=== PATIENT | male | born 1995 | race Caucasian/White ===

== ENCOUNTER 2022-06-22 19:33 | Emergency (ER) | payer MEDICAID ==
[~2022-06-22] VITALS: Ht 167.6 cm; Wt 142.4 kg
[~2022-06-22 19:33] MED LIST: ACET-812 PO; CARV3.1289 PO; LISI2.5T14 PO
[2022-06-22 19:45] VITALS: BP 164/83
== END 2022-06-22 21:37 | disposition home or self-care (01) ==
LOC: ER 19:33
DX: I87.8 Other specified disorders of veins (principal); J45.909 Unspecified asthma, uncomplicated; Z98.890 Other specified postprocedural states; Z59.00 Homelessness unspecified; Z79.899 Other long term (current) drug therapy
CPT/HCPCS: 99283

== ENCOUNTER 2024-09-04 01:05 | Inpatient (IN) | payer MEDICAID ==
[~2024-09-04] VITALS: Ht 167.6 cm; Wt 180.0 kg
[~2024-09-04 01:05] MED LIST changes: +ACET-1266 PO; -ACET-812 PO; -CARV3.1289 PO; +IBUP-1984 PO; -LISI2.5T14 PO
[2024-09-04] MEDS ORDERED: VANCOMYCIN 1GM 200ML H20 (PEG) 200 ML IV ONE (01:40)
[2024-09-04] MEDS ORDERED: acetaminophen 325mg tablet PO ONE (01:40)
[2024-09-04] MEDS ORDERED: cephalexin 250mg capsule PO ONE (01:40)
[2024-09-04 02:11] LABS: BASOPHILS # (AUTO) 0.1 X10'3 (0-0.2); BASOPHILS % (AUTO) 1.2 % (0-1); EOSINOPHILS # (AUTO) 0.3 X10'3 (0-0.9); EOSINOPHILS % (AUTO) 3.8 % (0-6); HEMATOCRIT 37.8 % (42.0-52.0); HEMOGLOBIN 12.5 g/dl (14.0-17.9); LYMPHOCYTES # (AUTO) 1.5 X10'3 (1.1-4.8); MEAN CORPUSCULAR HEMOGLOBIN 26.8 PG (27.0-31.0); MEAN CORPUSCULAR HGB CONC 32.9 g/dL (33.0-36.5); MEAN CORPUSCULAR VOLUME 81.3 FL (78-98); MEAN PLATELET VOLUME 8.2 FL (7.4-10.4); MONOCYTES # (AUTO) 0.5 X10'3 (0-0.9); MONOCYTES % (AUTO) 6.6 % (2-12); NEUTROPHILS # (AUTO) 5.8 X10'3 (1.8-7.7); NEUTROPHILS % (AUTO) 70.4 % (42-75); PLATELET COUNT 368 X10'3 (140-440); RED BLOOD COUNT 4.65 X10'6 (4.70-6.10); RED CELL DISTRIBUTION WIDTH 15.5 % (11.5-14.5); WHITE BLOOD COUNT 8.2 X10'3 (4.5-11.0)
[2024-09-04 02:28] LABS: ALANINE AMINOTRANSFERASE 55 U/L (12-78); ALBUMIN 3.3 G/DL (3.4-5.0); ALBUMIN/GLOBULIN RATIO 0.7 (1.1-1.5); ALKALINE PHOSPHATASE 101 IU/L (46-116); ANION GAP 5 (8-16); ASPARTATE AMINO TRANSFERASE 34 U/L (10-37); BILIRUBIN,TOTAL 0.4 MG/DL (0.1-1.0); BLOOD UREA NITROGEN 17 MG/DL (7-18); BUN/CREATININE RATIO 25.8 (10.0-20.0); CALCIUM 8.7 MG/DL (8.5-10.1); CHLORIDE 107 MMOL/L (99-107); CREATININE 0.66 MG/DL (0.60-1.10); GLUCOSE 104 MG/DL (70-104); POTASSIUM 3.8 MMOL/L (3.5-5.1); SODIUM 141 MMOL/L (135-145); TOTAL CARBON DIOXIDE 28.6 MMOL/L (24-32); TOTAL PROTEIN 7.9 G/DL (6.4-8.2); eCRCL 148 ML/MIN; eGFR > 90 ML/MIN
[2024-09-04 02:31] LABS: C-REACTIVE PROTEIN 1.65 MG/DL (0.0-0.5); MAGNESIUM 2.2 MG/DL (1.5-2.4)
[2024-09-04] MEDS: normal saline 1000ML IV soln IVB ONE (02:45)
[2024-09-04] MEDS: piperacillin/tazo 3.375gm/50ml 50 ML IV ONE (02:45)
[2024-09-04] MEDS: vancomycin/NS 1 GM ADD-VANTAGE 250 ML IV ONE (03:01)
[2024-09-04] MEDS: HYDROcodone/acetaminophen 5mg/325mg tablet PO ONE (04:04)
[2024-09-04] MEDS ORDERED: ondansetron/PF 4mg/2ml inj IV PRN (05:20)
[2024-09-04] MEDS ORDERED: potassium Cl 20 mEq SR tablet PO PRN ×2 (05:20)
[2024-09-04] MEDS ORDERED: magnesium Cl slow-release 64mg tablet PO PRN (05:20)
[2024-09-04] MEDS ORDERED: magnesium sulf-water 4G/100mL 100 ML IV PRN (05:20)
[2024-09-04] MEDS ORDERED: mag hydrox/Alum hydrox/simeth 30ml oral suspension PO PRN (05:20)
[2024-09-04] MEDS ORDERED: magnesium sulf-water 2g/50mL 50 ML IV PRN (05:20)
[2024-09-04] MEDS ORDERED: potassium Cl 40MEQ/1/2NS 520ml 520 ML IV PRN (05:20)
[2024-09-04] MEDS ORDERED: acetaminophen 325mg tablet PO PRN (05:20)
[2024-09-04] MEDS: normal saline 1000ml 1,000 ML IV SCH (05:34)
[2024-09-04] MEDS: furosemide 20 MG/2 ML vial IV ONE (07:06)
[2024-09-04] MEDS ORDERED: clindamycin 300mg/D5W 50mL 50 ML IV SCH (08:00)
[2024-09-04] MEDS: K and/or MAG REPLACEMENT MC SCH (08:00)
[2024-09-04 08:15] VITALS: RESP 16; O2SAT 96
[2024-09-04 08:48] LABS: BILIRUBIN,URINE NEGATIVE (Neg); CLARITY,URINE CLEAR (Clear); COLOR,URINE STRAW (Yellow); GLUCOSE, URINE NEGATIVE (Neg); KETONES,URINE NEGATIVE (Neg); LEUKOCYTE ESTERASE ,URINE NEGATIVE (Neg); NITRITES, URINE NEGATIVE (Neg); OCCULT BLOOD,URINE NEGATIVE (Neg); PH,URINE 5.5 (4.8-8.0); PROTEIN,URINE NEGATIVE (Neg); UROBILINOGEN,URINE 0.2 E.U/dL (0.2-1.0)
[2024-09-04 08:53] LABS: UA COLLECTION TYPE VOIDED
[2024-09-04 09:00] VITALS: BP 153/70; PULSE 101; RESP 16; TEMP 98; O2SAT 96
[2024-09-04 09:09] LABS: URINE AMPHETAMINE SCREEN NEGATIVE (Neg); URINE BARBITUATE SCREEN NEGATIVE (Neg); URINE BENZODIAZEPINES SCREEN NEGATIVE (Neg); URINE CANNABINOID SCREEN NEGATIVE (Neg); URINE COCAINE SCREEN NEGATIVE (Neg); URINE METHADONE SCREEN NEGATIVE (Neg); URINE OPIATE SCREEN NEGATIVE (Neg); URINE PHENCYCLIDINE SCREEN NEGATIVE (Neg)
[2024-09-04] MEDS: HYDROcodone/acetaminophen 5mg/325mg tablet PO PRN (09:12)
[2024-09-04] MEDS: pantoprazole 40mg Tablet.DR PO SCH (09:12)
[2024-09-04] MEDS: lisinopril 5mg tablet PO SCH (09:12)
[2024-09-04] MEDS: piperacillin/tazo 3.375gm/50ml 50 ML IV SCH (09:14)
[2024-09-04 09:20] LABS: POTASSIUM 3.9 MMOL/L (3.5-5.1)
[2024-09-04] MEDS: enoxaparin 30mg/0.3ml syringe SQ SCH (11:26)
[2024-09-04] MEDS: vancomycin/NS 1 GM ADD-VANTAGE 250 ML IV SCH (13:32)
[2024-09-04] MEDS: HYDROcodone/acetaminophen 10/325mg tab PO PRN (14:26)
[2024-09-04 18:00] VITALS: BP 139/65; PULSE 106; RESP 20; TEMP 99.2; O2SAT 94
[2024-09-04 19:50] VITALS: RESP 20; O2SAT 94
[2024-09-04 22:00] VITALS: BP 122/56; PULSE 93; RESP 14; TEMP 97.8; O2SAT 100
[2024-09-05] VITALS (7 sets, daily range): BP systolic 123–156; BP diastolic 52–76; PULSE 83–91; RESP 14–20; TEMP 96.7–99.2; O2SAT 93–97
[2024-09-05] MEDS: acetaminophen 325mg tablet PO PRN (00:32)
[2024-09-05 03:06] LABS: BASOPHILS # (AUTO) 0.1 X10'3 (0-0.2); BASOPHILS % (AUTO) 1.2 % (0-1); EOSINOPHILS # (AUTO) 0.3 X10'3 (0-0.9); EOSINOPHILS % (AUTO) 3.4 % (0-6); HEMOGLOBIN 10.7 g/dl (14.0-17.9); LYMPHOCYTES # (AUTO) 2.2 X10'3 (1.1-4.8); MEAN CORPUSCULAR HEMOGLOBIN 27.1 PG (27.0-31.0); MEAN CORPUSCULAR HGB CONC 33.4 g/dL (33.0-36.5); MEAN CORPUSCULAR VOLUME 81.1 FL (78-98); MEAN PLATELET VOLUME 8.4 FL (7.4-10.4); MONOCYTES # (AUTO) 0.7 X10'3 (0-0.9); MONOCYTES % (AUTO) 8.7 % (2-12); NEUTROPHILS # (AUTO) 4.9 X10'3 (1.8-7.7); NEUTROPHILS % (AUTO) 59.7 % (42-75); PLATELET COUNT 341 X10'3 (140-440); RED BLOOD COUNT 3.95 X10'6 (4.70-6.10); RED CELL DISTRIBUTION WIDTH 15.9 % (11.5-14.5); WHITE BLOOD COUNT 8.3 X10'3 (4.5-11.0)
[2024-09-05 03:18] LABS: INR 1.1 INR; PROTHROMBIN TIME 10.9 SECONDS (9.0-12.0)
[2024-09-05] MEDS: VANCOMYCIN LEVEL IV ONE (03:21)
[2024-09-05 03:22] LABS: ALANINE AMINOTRANSFERASE 42 U/L (12-78); ALBUMIN 2.7 G/DL (3.4-5.0); ALBUMIN/GLOBULIN RATIO 0.8 (1.1-1.5); ALKALINE PHOSPHATASE 87 IU/L (46-116); ANION GAP 4 (8-16); ASPARTATE AMINO TRANSFERASE 19 U/L (10-37); BILIRUBIN,TOTAL 0.9 MG/DL (0.1-1.0); BLOOD UREA NITROGEN 11 MG/DL (7-18); BUN/CREATININE RATIO 16.9 (10.0-20.0); CALCIUM 8.2 MG/DL (8.5-10.1); CHLORIDE 105 MMOL/L (99-107); CREATININE 0.65 MG/DL (0.60-1.10); GLUCOSE 99 MG/DL (70-104); MAGNESIUM 2.1 MG/DL (1.5-2.4); PHOSPHORUS 3.6 MG/DL (2.3-4.5); SODIUM 138 MMOL/L (135-145); TOTAL CARBON DIOXIDE 29.4 MMOL/L (24-32); TOTAL PROTEIN 6.3 G/DL (6.4-8.2); VANCOMYCIN,TROUGH 9.6 ug/mL (10.0-20.0); eCRCL 150 ML/MIN; eGFR > 90 ML/MIN
[2024-09-05] MEDS: furosemide 40mg tablet PO SCH (07:51)
[2024-09-05] MEDS: VANCOMYCIN/WATER FOR INJ (PEG) 1.5GM/300 ML IVPB IV SCH (11:20)
[2024-09-06 06:00] VITALS: BP 139/73; PULSE 93; RESP 20; TEMP 97.9; O2SAT 95
[2024-09-06 06:07] LABS: BASOPHILS # (AUTO) 0.1 X10'3 (0-0.2); BASOPHILS % (AUTO) 1.3 % (0-1); EOSINOPHILS # (AUTO) 0.4 X10'3 (0-0.9); EOSINOPHILS % (AUTO) 6.2 % (0-6); HEMATOCRIT 32.2 % (42.0-52.0); HEMOGLOBIN 10.9 g/dl (14.0-17.9); LYMPHOCYTES # (AUTO) 2.1 X10'3 (1.1-4.8); LYMPHOCYTES % (AUTO) 32.6 % (21-51); MEAN CORPUSCULAR HEMOGLOBIN 27.3 PG (27.0-31.0); MEAN CORPUSCULAR HGB CONC 33.7 g/dL (33.0-36.5); MEAN CORPUSCULAR VOLUME 81.1 FL (78-98); MEAN PLATELET VOLUME 8.5 FL (7.4-10.4); MONOCYTES # (AUTO) 0.5 X10'3 (0-0.9); MONOCYTES % (AUTO) 7.8 % (2-12); NEUTROPHILS # (AUTO) 3.3 X10'3 (1.8-7.7); NEUTROPHILS % (AUTO) 52.1 % (42-75); PLATELET COUNT 326 X10'3 (140-440); RED BLOOD COUNT 3.98 X10'6 (4.70-6.10); RED CELL DISTRIBUTION WIDTH 15.5 % (11.5-14.5); WHITE BLOOD COUNT 6.4 X10'3 (4.5-11.0)
[2024-09-06 06:23] LABS: ALANINE AMINOTRANSFERASE 35 U/L (12-78); ALBUMIN 2.7 G/DL (3.4-5.0); ALBUMIN/GLOBULIN RATIO 0.7 (1.1-1.5); ALKALINE PHOSPHATASE 83 IU/L (46-116); ANION GAP 7 (8-16); ASPARTATE AMINO TRANSFERASE 17 U/L (10-37); BILIRUBIN,TOTAL 0.6 MG/DL (0.1-1.0); BLOOD UREA NITROGEN 8 MG/DL (7-18); BUN/CREATININE RATIO 13.6 (10.0-20.0); CALCIUM 8.5 MG/DL (8.5-10.1); CHLORIDE 104 MMOL/L (99-107); CREATININE 0.59 MG/DL (0.60-1.10); GLUCOSE 90 MG/DL (70-104); MAGNESIUM 2.1 MG/DL (1.5-2.4); POTASSIUM 3.8 MMOL/L (3.5-5.1); SODIUM 140 MMOL/L (135-145); TOTAL CARBON DIOXIDE 29.3 MMOL/L (24-32); TOTAL PROTEIN 6.4 G/DL (6.4-8.2); VANCOMYCIN,TROUGH 11.9 ug/mL (10.0-20.0); eCRCL 165 ML/MIN; eGFR > 90 ML/MIN
[2024-09-06 08:00] VITALS: RESP 20; O2SAT 95
[2024-09-06] MEDS: VANCOMYCIN LEVEL IV ONE (10:30)
[2024-09-06 11:00] VITALS: BP 141/73; PULSE 84; O2SAT 94
[2024-09-06] MEDS: CefTRIAXone/D5W-Rocephin 1gm 50 ML IV SCH (14:19)
[2024-09-06 18:00] VITALS: BP 135/60; PULSE 74; RESP 18; TEMP 98.6; O2SAT 95
[2024-09-06 22:00] VITALS: BP 148/56; PULSE 86; RESP 20; TEMP 98; O2SAT 95
[2024-09-07 06:00] VITALS: BP 144/60; PULSE 79; RESP 21; TEMP 98; O2SAT 93
[2024-09-07 10:00] VITALS: BP 144/60; PULSE 79; RESP 21; TEMP 98; O2SAT 93
[2024-09-07 18:00] VITALS: BP 109/55; PULSE 83; RESP 24; TEMP 98.6; O2SAT 95
[2024-09-07 20:00] VITALS: RESP 24; O2SAT 95
[2024-09-07 22:00] VITALS: BP 117/49; PULSE 80; RESP 14; TEMP 97.9; O2SAT 95
[2024-09-08 04:15] LABS: BASOPHILS % (AUTO) 0.4 % (0-1); EOSINOPHILS # (AUTO) 0.4 X10'3 (0-0.9); EOSINOPHILS % (AUTO) 5.8 % (0-6); HEMATOCRIT 36.3 % (42.0-52.0); HEMOGLOBIN 12.2 g/dl (14.0-17.9); LYMPHOCYTES # (AUTO) 2.4 X10'3 (1.1-4.8); LYMPHOCYTES % (AUTO) 35.2 % (21-51); MEAN CORPUSCULAR HEMOGLOBIN 27.1 PG (27.0-31.0); MEAN CORPUSCULAR HGB CONC 33.5 g/dL (33.0-36.5); MEAN CORPUSCULAR VOLUME 80.8 FL (78-98); MEAN PLATELET VOLUME 8.1 FL (7.4-10.4); MONOCYTES # (AUTO) 0.5 X10'3 (0-0.9); MONOCYTES % (AUTO) 7.1 % (2-12); NEUTROPHILS # (AUTO) 3.5 X10'3 (1.8-7.7); NEUTROPHILS % (AUTO) 51.5 % (42-75); PLATELET COUNT 307 X10'3 (140-440); RED BLOOD COUNT 4.49 X10'6 (4.70-6.10); RED CELL DISTRIBUTION WIDTH 15.7 % (11.5-14.5); WHITE BLOOD COUNT 6.9 X10'3 (4.5-11.0)
[2024-09-08 04:30] LABS: ALANINE AMINOTRANSFERASE 43 U/L (12-78); ALBUMIN 3.1 G/DL (3.4-5.0); ALBUMIN/GLOBULIN RATIO 0.7 (1.1-1.5); ALKALINE PHOSPHATASE 89 IU/L (46-116); ANION GAP 7 (8-16); ASPARTATE AMINO TRANSFERASE 31 U/L (10-37); BILIRUBIN,TOTAL 0.5 MG/DL (0.1-1.0); BLOOD UREA NITROGEN 13 MG/DL (7-18); BUN/CREATININE RATIO 21.7 (10.0-20.0); CALCIUM 8.7 MG/DL (8.5-10.1); CHLORIDE 104 MMOL/L (99-107); GLUCOSE 90 MG/DL (70-104); MAGNESIUM 2.1 MG/DL (1.5-2.4); PHOSPHORUS 3.8 MG/DL (2.3-4.5); POTASSIUM 3.7 MMOL/L (3.5-5.1); SODIUM 140 MMOL/L (135-145); TOTAL CARBON DIOXIDE 29.4 MMOL/L (24-32); TOTAL PROTEIN 7.7 G/DL (6.4-8.2); eCRCL 162 ML/MIN; eGFR > 90 ML/MIN
[2024-09-08 06:00] VITALS: BP 129/53; PULSE 78; RESP 18; TEMP 98.8; O2SAT 95
[2024-09-08 10:00] VITALS: BP 141/57; PULSE 79; RESP 24; TEMP 98.1; O2SAT 94
[2024-09-08 18:00] VITALS: BP 123/62; PULSE 83; RESP 15; TEMP 98.2; O2SAT 96
[2024-09-08 20:00] VITALS: RESP 15; O2SAT 96
[2024-09-08 22:00] VITALS: BP 129/58; PULSE 93; RESP 20; TEMP 98.2; O2SAT 96
[2024-09-09 04:03] LABS: BASOPHILS # (AUTO) 0.1 X10'3 (0-0.2); BASOPHILS % (AUTO) 1.4 % (0-1); EOSINOPHILS # (AUTO) 0.4 X10'3 (0-0.9); EOSINOPHILS % (AUTO) 5.8 % (0-6); HEMATOCRIT 38.6 % (42.0-52.0); HEMOGLOBIN 13.1 g/dl (14.0-17.9); LYMPHOCYTES # (AUTO) 2.4 X10'3 (1.1-4.8); MEAN CORPUSCULAR HEMOGLOBIN 27.7 PG (27.0-31.0); MEAN CORPUSCULAR VOLUME 81.4 FL (78-98); MEAN PLATELET VOLUME 8.1 FL (7.4-10.4); MONOCYTES # (AUTO) 0.5 X10'3 (0-0.9); MONOCYTES % (AUTO) 7.7 % (2-12); NEUTROPHILS # (AUTO) 3.6 X10'3 (1.8-7.7); NEUTROPHILS % (AUTO) 51.1 % (42-75); PLATELET COUNT 390 X10'3 (140-440); RED BLOOD COUNT 4.74 X10'6 (4.70-6.10); RED CELL DISTRIBUTION WIDTH 15.8 % (11.5-14.5)
[2024-09-09 04:20] LABS: ALANINE AMINOTRANSFERASE 70 U/L (12-78); ALBUMIN 3.3 G/DL (3.4-5.0); ALBUMIN/GLOBULIN RATIO 0.7 (1.1-1.5); ALKALINE PHOSPHATASE 95 IU/L (46-116); ANION GAP 6 (8-16); ASPARTATE AMINO TRANSFERASE 47 U/L (10-37); BILIRUBIN,TOTAL 0.6 MG/DL (0.1-1.0); BLOOD UREA NITROGEN 12 MG/DL (7-18); BUN/CREATININE RATIO 19.4 (10.0-20.0); CHLORIDE 104 MMOL/L (99-107); CREATININE 0.62 MG/DL (0.60-1.10); GLUCOSE 92 MG/DL (70-104); PHOSPHORUS 3.7 MG/DL (2.3-4.5); POTASSIUM 3.9 MMOL/L (3.5-5.1); SODIUM 139 MMOL/L (135-145); TOTAL CARBON DIOXIDE 29.3 MMOL/L (24-32); TOTAL PROTEIN 7.8 G/DL (6.4-8.2); eCRCL 157 ML/MIN; eGFR > 90 ML/MIN
[2024-09-09 06:00] VITALS: BP 111/51; PULSE 67; RESP 18; TEMP 98.4; O2SAT 95
[2024-09-09 10:00] VITALS: RESP 18; O2SAT 95
[2024-09-09 18:00] VITALS: BP 127/53; PULSE 85; RESP 16; TEMP 98.6; O2SAT 95
[2024-09-09 22:00] VITALS: BP 125/83; PULSE 80; RESP 18; TEMP 98.2; O2SAT 100
[2024-09-10 06:00] VITALS: BP 107/58; PULSE 88; RESP 20; TEMP 97.7; O2SAT 96
[2024-09-10 08:00] VITALS: RESP 20; O2SAT 96
[2024-09-10 12:00] VITALS: BP 128/70; PULSE 74; RESP 12; TEMP 98.3; O2SAT 98
[2024-09-10 18:00] VITALS: BP 144/70; PULSE 66; RESP 16; TEMP 98.2; O2SAT 98
[2024-09-10 22:00] VITALS: BP 136/55; PULSE 85; RESP 18; TEMP 98.4; O2SAT 96
[2024-09-11] VITALS (7 sets, daily range): BP systolic 118–128; BP diastolic 55–64; PULSE 76–96; RESP 14–18; TEMP 98.1–98.4; O2SAT 93–96
[2024-09-11 06:14] LABS: BASOPHILS # (AUTO) 0.1 X10'3 (0-0.2); BASOPHILS % (AUTO) 1.2 % (0-1); EOSINOPHILS # (AUTO) 0.4 X10'3 (0-0.9); EOSINOPHILS % (AUTO) 4.5 % (0-6); HEMATOCRIT 41.1 % (42.0-52.0); HEMOGLOBIN 13.7 g/dl (14.0-17.9); LYMPHOCYTES # (AUTO) 2.8 X10'3 (1.1-4.8); LYMPHOCYTES % (AUTO) 35.1 % (21-51); MEAN CORPUSCULAR HEMOGLOBIN 27.3 PG (27.0-31.0); MEAN CORPUSCULAR HGB CONC 33.3 g/dL (33.0-36.5); MEAN CORPUSCULAR VOLUME 81.9 FL (78-98); MEAN PLATELET VOLUME 8.3 FL (7.4-10.4); MONOCYTES # (AUTO) 0.5 X10'3 (0-0.9); MONOCYTES % (AUTO) 6.5 % (2-12); NEUTROPHILS # (AUTO) 4.2 X10'3 (1.8-7.7); NEUTROPHILS % (AUTO) 52.7 % (42-75); PLATELET COUNT 368 X10'3 (140-440); RED BLOOD COUNT 5.02 X10'6 (4.70-6.10); RED CELL DISTRIBUTION WIDTH 16.1 % (11.5-14.5)
[2024-09-11 06:20] LABS: ALANINE AMINOTRANSFERASE 86 U/L (12-78); ALBUMIN 3.2 G/DL (3.4-5.0); ALBUMIN/GLOBULIN RATIO 0.7 (1.1-1.5); ALKALINE PHOSPHATASE 92 IU/L (46-116); ANION GAP 5 (8-16); ASPARTATE AMINO TRANSFERASE 57 U/L (10-37); BILIRUBIN,TOTAL 0.4 MG/DL (0.1-1.0); BLOOD UREA NITROGEN 13 MG/DL (7-18); CALCIUM 8.8 MG/DL (8.5-10.1); CHLORIDE 103 MMOL/L (99-107); CREATININE 0.59 MG/DL (0.60-1.10); GLUCOSE 93 MG/DL (70-104); POTASSIUM 3.4 MMOL/L (3.5-5.1); SODIUM 138 MMOL/L (135-145); TOTAL PROTEIN 7.7 G/DL (6.4-8.2); eCRCL 165 ML/MIN; eGFR > 90 ML/MIN
[2024-09-11] MEDS ORDERED: magnesium sulf-water 2g/50mL 50 ML IV PRN (13:30)
[2024-09-11] MEDS ORDERED: magnesium Cl slow-release 64mg tablet PO PRN (13:30)
[2024-09-11] MEDS ORDERED: magnesium sulf-water 4G/100mL 100 ML IV PRN (13:30)
[2024-09-11] MEDS ORDERED: potassium Cl 40MEQ/1/2NS 520ml 520 ML IV PRN (13:30)
[2024-09-11] MEDS ORDERED: potassium Cl 20 mEq SR tablet PO PRN (13:30)
[2024-09-11] MEDS: potassium Cl 20 mEq SR tablet PO PRN (16:24)
[2024-09-11] MEDS: K and/or MAG REPLACEMENT MC SCH (20:00)
[2024-09-12 06:00] VITALS: BP 119/67; PULSE 61; RESP 12; TEMP 95.9; O2SAT 98
[2024-09-12 07:00] VITALS: RESP 17; O2SAT 98
[2024-09-12 10:00] VITALS: BP 136/57; PULSE 87; RESP 18; TEMP 98.3; O2SAT 96
[2024-09-12] MEDS ORDERED: LISI5TAB22 PO (18:35)
== END 2024-09-12 19:30 | disposition home or self-care (01) | DRG 383 ==
LOC: ER 01:07 → ED HOLD 05:21 → SUR 3N 07:26
PROVIDERS: ADMIT Internal Medicine; ATTEND Internal Medicine
DX: L03.115 Cellulitis of right lower limb (principal); I50.30 Unspecified diastolic (congestive) heart failure; I11.0 Hypertensive heart disease with heart failure; Z68.44 Body mass index [BMI] 60.0-69.9, adult; E78.00 Pure hypercholesterolemia, unspecified; E66.01 Morbid (severe) obesity due to excess calories; L03.116 Cellulitis of left lower limb; J45.909 Unspecified asthma, uncomplicated; G47.30 Sleep apnea, unspecified; Z59.00 Homelessness unspecified
CPT/HCPCS: 36410; 36415; 73590; 73700; 76937; 80053; 80202; 80305; 81003; 83036; 83605; 83735; 83880; 84100; 84132; 84145; 84484; 85025; 85610; 85651; 86140; 87040; 87070; 87075; 87077; 87081; 87186; 93306; 93925; 93970; 96365; 96367; 97034; 97110; 97161; 97530; 97535; 97542; 99285; A4333; A6154; A6223; A6253; A6258; A6446; A6449; C1751; G0378; J0696; J1650; J1938; J2543; J3370; J3372; J7030

== ENCOUNTER 2024-11-28 09:19 | Inpatient (IN) | payer MEDICAID ==
[~2024-11-28] VITALS: Ht 167.6 cm; Wt 165.0 kg
[~2024-11-28 09:19] MED LIST changes: -IBUP-1984 PO; +LISI5TAB22 PO
--- NOTE | 2024-11-28 09:34 | Physician Documentation ---
History of Present Illness ~ Chief Complaint: Wound Stated Complaint: FEET INFECTION Time Seen by MD: 09:26 OK to notify your PCP?: Yes Primary Medical Doctor: [facility] Source: patient, RN/MD, EMS, RN notes reviewed, EMS notes reviewed, old records Mode of Arrival: EMS Exam Limitations: no limitations HPI 28 year old male seen in bed 01 presents to the emergency department via EMS brought in from home for complaints of wounds bilaterally to his feet. Patient states he was born with drop foot and has not taken his shoes off for two months. States that he will regularly shower while wearing his shoes. Patient denies any other associated symptoms at this time. Patient denies any other alleviating or exacerbating factors. Tetanus within 5 years?: No Medication Reconciliation Allergies: Coded Allergies: No Known Allergies (Unverified , 11/28/24) Miscellaneous Medications Home Med List (No Home Medications), (Reported) Discontinued Medications Acetaminophen (Acetaminophen), 1 TAB PO Q4HPRN PRN for pain or fever, (Reported) Discontinued Reason: patient no longer taking Lisinopril (Lisinopril), 5 MG PO DAILY Discontinued Reason: patient no longer taking Past Medical History Past Medical History: High Cholesterol, Hypertension, Asthma, Sleep Apnea Past Surgical History: other Other Past Surgical History: Tetralogy of Fallot surgically corrected at 4 months old Alcohol Use: None Drug Use: none Lives with: Family Lives In: Homeless Review of Systems All Other Systems at this time: Reviewed and Negative ROS As stated above in the HPI, otherwise all systems are reviewed and negative. Physical Exam Vital Signs: RN Vital Signs have been reviewed: Yes, Temperature: 99.7, Source: Temporal, Heart Rate: 125, Respiratory Rate: 16, BP: 171/94, Pulse Oximetry: 98, Weight: 165.000 Oxygen Flow Rate: 0 Pulse Oximetry Reflects: adequate oxygenation Physical Exam General: The patient is well developed, well nourished, nontoxic appearing and is in no acute distress. Skin: [place], warm and dry with no rashes. HEENT: Head was normocephalic and atraumatic. Eyes - pupils equal, round, reactive to light and accommodation. Extraocular movements were intact. Conjunctivae were nonicteric. Ears - bilateral tympanic membranes were normal. The mouth and oropharynx were clear with moist mucous membranes. There were no pharyngeal exudates or erythema. Neck: Supple and nontender. There was no jugular venous distention, ly mphadenopathy, thyromegaly or masses. Chest: Clear to auscultation bilaterally without wheezes, rales or rhonchi. No accessory muscle use. No dullness to percussion. Heart: Rapid heart rate. 4/6 systolic ejection murmur. S1, S2. No murmurs. Palpation of the chest wall was normal. No rubs or thrills. Abdomen: Soft, nontender and nondistended. Positive bowel sounds. No guarding or rebound. No hepatosplenomegaly or palpable masses. Extremities: Bilateral cellulitis in addition to cracked feet as well as multiple ulcerations to foot and back of calf posteriorly. The patient moves all extremities. Pulses were equal and symmetric. Neurologic: Cranial nerves II-XII were intact. Sensation was intact to light touch throughout. Motor strength was 5/5 in all four extremities. Deep tendon reflexes were intact in both upper and lower extremities. Psychologic: The patient was oriented to person, place and time. The patient demonstrated appropriate judgement and insight. Progress Progress Note 1150: The case was discussed with Dr. Lang who was informed on the patients case and kindly agreed to admission. Results/Orders Reviewed/noted all lab results: Yes Results/Orders Orders - SCOTT DEVRIES MD Culture Blood (11/28/24 09:32) Monitor (11/28/24 09:32) Saline Lock (11/28/24 09:32) Electrocardiogram (11/28/24 09:32) Chest,Single View (11/28/24 09:32) Page Hospitalist (11/28/24 11:24) Fill Out Med Reconciliation (11/28/24 11:24) Completed Orders - SCOTT DEVRIES MD Cbc/Diff (11/28/24 09:32) Urinalysis, Cult If Indicated (11/28/24 09:32) Procalcitonin (11/28/24 09:32) BMP (11/28/24 09:32) Lacticsepsis (11/28/24 09:32) MG (11/28/24 09:32) Chest,Single View (11/28/24 09:32) Normal Saline 1000ml (Sodium Chloride 10 (11/28/24 09:35) Ceftriaxone 2gm/D5w 50ml Bag (Rocephin 2 (11/28/24 09:35) Liver Panel (11/28/24 09:33) Vancomycin*Pharmacy To Dose* (Vancomycin (11/28/24 10:20) Vancomycin/Ns 1 Gm Add-[place] (Vancomyc (11/28/24 10:45) Potassium Cl Sr Tablet (K-Dur Tablet) (11/28/24 11:55) Magnesium Oxide Tablet (Mag-Ox 400mg Tab (11/28/24 11:55) Vital Signs 11/28/24 11/28/24 09:24 11:10 Temp 99.7 Pulse 125 114 Resp 16 18 B/P (MAP) 171/94 157/78 (104) Pulse Ox 98 97 O2 Flow Rate 0 0 Laboratory Tests Test 11/28/24 09:51 White Blood Count 8.1 Red Blood Count 4.44 L Hemoglobin 11.9 L Hematocrit 35.9 L Mean Corpuscular Volume 80.8 Mean Corpuscular Hemoglobin 26.8 L Mean Corpuscular Hemoglobin Concent 33.1 Red Cell Distribution Width 15.7 H Platelet Count 404 Mean Platelet Volume 8.0 Neutrophils (%) (Auto) 67.8 Lymphocytes (%) (Auto) 20.1 L Monocytes (%) (Auto) 7.1 Eosinophils (%) (Auto) 4.0 Basophils (%) (Auto) 1.0 Neutrophils # (Auto) 5.5 Lymphocytes # (Auto) 1.6 Monocytes # (Auto) 0.6 Eosinophils # (Auto) 0.3 Basophils # (Auto) 0.1 CBC Comment Sodium Level 142 Potassium Level 3.2 L Chloride Level 105 Carbon Dioxide Level 26.8 Anion Gap 10 Blood Urea Nitrogen 11 Creatinine 0.64 Estimated GFR/1.73 m2 > 90 BUN/Creatinine Ratio 17.2 Glucose Level 100 Lactic Acid Level 1.6 Calcium Level 9.0 Magnesium Level 2.0 Total Bilirubin 0.6 Direct Bilirubin 0.1 Aspartate Amino Transf (AST/SGOT) 26 Alanine Aminotransferase (ALT/SGPT) 35 Alkaline Phosphatase 86 Total Protein 8.3 H Albumin 3.1 L Globulin 5.2 H Albumin/Globulin Ratio 0.6 L Procalcitonin < 0.05 Chemistry Comments Microbiology Date/Time Source Procedure Growth Status 11/28/24 10:37 Blood Arm Right Blood Culture - Preliminary NEGATIVE (LESS THAN 24 HOURS) Resulted Re-Evaluation Re-Evaluation : Re-Evaluation: Improved Progress Patient was seen and examined. Patient was given reassurance. Patient has a foul odor. His shoes were wet with maggots. I removed the shoes. His wound s hows signs of trench foot. Soggy discoloration toes unable to differentiate were a total begins and ends that is all 1 ft. Soggy tissue. Magnet that is everywhere. Also some ulcerations posteriorly on the brace area where it was removed. Pictures were obtained. IV antibiotics were obtained Mag is were removed. Later with the hospitalist was consulted who kindly agreed to admit the patient for further workup and care. Patient's white count did not show any significant leukocytosis. WBCs 8.1 H and H is 11 and 35. Platelets 404. Patient's chemistry was reassuring and within normal limits magnesium 2.0 however potassium slightly low at 3.2. LFTs within normal limits lactic acid and procalcitonin were also negative urinalysis was negative. CT scan was obtained. Fluids were provided 2 g of Rocephin and vancomycin was given. Patient is was later given Zosyn by the hospitalist. Potassium supplementation was also started. Cat scan was negative for osteomyelitis. Cardiac continuous monitoring shows sinus tachycardia heart rate 120s, abnormal, my interpretation. Pulse oximetry monitor interpretation shows normal oxygenation at 98% room air, normal, my interpretation. EKG/XRAY/CT/US/VASC/MRI EKG : Additional Comment 0979: BLAS Devries interpreted EKG to show sinus tachycardia at a rate of 120bpm with a QTc of 477 with poor R wave progression. Chest X-Ray : Additional Comments HEST RADIOGRAPH Indication: SEPSIS Technique: Single frontal view of the chest was obtained COMPARISON: CHEST,SINGLE VIEW on DOS: 07/24/22, CHEST,SINGLE VIEW on DOS: 07/18/22 FINDINGS: Lines and Tubes: None Lungs: Clear Pleura: No effusion. No pneumothorax. Cardiomediastinal contours: Cardiomegaly Bones: Unremarkable IMPRESSION: Cardiomegaly Electronically Signed by:REESE HERMAN MD Date & Time: 11/28/[address] : Impression NDICATION: Bilateral foot infections, maggots COMPARISON: CT CT LOWER EXTREMITY on DOS: 09/04/24 TECHNIQUE: CT of the bilateral lower extremity was performed without contrast. Volume transverse images were obtained and reconstructed in multiple planes using bone and soft tissue algorithms. Radiation Dose Information: CT Dose: CTDI volume is 11.3 mGy. Dose-length product is 749 mGy*cm FINDINGS/IMPRESSION: No acute fracture or dislocation. Joint spaces are maintained. No cortical destruction or periosteal reaction. Severe diffuse soft-tissue swelling , skin thickening and edema in the bilateral lower extremities, [id number]. This is suggestive of cellulitis. Electronically Signed by:REESE HERMAN MD Date & Time: 11/28/24 1454 Medical Decision Making Additional info obtained from: old records Differential Dx:Considerations: Include: Abscess, Cellulitis, Dressing change, Healing wound, Other Departure Time of Disposition: 11:58 Admitted to Inpatient Unit: yes, to hospitalist Admission Level of Care: Med/Surg Impression: Primary Impression: Bilateral lower leg cellulitis Additional Impressions: Infestation, maggots Bilateral foot-drop Hypokalemia Condition: Guarded Referrals: NO PRIMARY CARE PROVIDER (PCP) Education Educated: Patient Educated regarding: diagnosis, need for follow up, other Signature Scribe Signature: Scribed for Scott Devries MD by Patrice Price . 11/28/24 10:29 Attestation: The note accurately reflects work and decisions made by me.Scott Devries MD 11/28/24 09:34 SCOTT DEVRIES MD Nov 28, 2024 09:34 PATRICE BARR Nov 28, 2024 10:29
--- NOTE | 2024-11-28 09:54 | RADIOLOGY REPORT ---
CHEST RADIOGRAPH Indication: SEPSIS Technique: Single frontal view of the chest was obtained COMPARISON: CHEST,SINGLE VIEW on DOS: 07/24/22, CHEST,SINGLE VIEW on DOS: 07/18/22 FINDINGS: Lines and Tubes: None Lungs: Clear Pleura: No effusion. No pneumothorax. Cardiomediastinal contours: Cardiomegaly Bones: Unremarkable IMPRESSION: Cardiomegaly
[2024-11-28] MEDS: CefTRIAXone 2gm/D5W 50ml BAG 50 ML IV ONE (10:02)
[2024-11-28] MEDS: normal saline 1000ML IV soln IV ONE (10:02)
[2024-11-28 10:14] LABS: MEAN PLATELET VOLUME 8.0 FL (7.4-10.4); RED CELL DISTRIBUTION WIDTH 15.7 % (11.5-14.5)
[2024-11-28 10:33] LABS: CREATININE 0.64 MG/DL (0.60-1.10); TOTAL CARBON DIOXIDE 26.8 MMOL/L (24-32); eCRCL 152 ML/MIN; eGFR > 90 ML/MIN
[2024-11-28] MEDS: vancomycin/NS 1 GM ADD-VANTAGE 250 ML IV ONE (11:10)
[2024-11-28] MEDS ORDERED: magnesium sulf-water 2g/50mL 50 ML IV PRN (11:55)
[2024-11-28] MEDS ORDERED: magnesium hydroxide 30ml (MOM) UD suspension PO PRN (11:55)
[2024-11-28] MEDS ORDERED: HYDROcodone/acetaminophen 5mg/325mg tablet PO PRN (11:55)
[2024-11-28] MEDS ORDERED: potassium Cl 40MEQ/1/2NS 520ml 520 ML IV PRN (11:55)
[2024-11-28] MEDS ORDERED: mag hydrox/Alum hydrox/simeth 30ml oral suspension PO PRN (11:55)
[2024-11-28] MEDS ORDERED: potassium Cl 20 mEq SR tablet PO PRN (11:55)
[2024-11-28] MEDS ORDERED: magnesium sulf-water 4G/100mL 100 ML IV PRN (11:55)
[2024-11-28] MEDS ORDERED: ondansetron/PF 4mg/2ml inj IV PRN (11:55)
[2024-11-28] MEDS: normal saline 1000ml 1,000 ML IV SCH (12:56)
[2024-11-28] MEDS: fluconazole/NS 400mg/200ml bag 200 ML IV SCH (12:56)
[2024-11-28] MEDS: potassium Cl 20 mEq SR tablet PO ONE (12:57)
[2024-11-28 13:13] LABS: LEUKOCYTE ESTERASE ,URINE NEGATIVE (Neg); NITRITES, URINE NEGATIVE (Neg); OCCULT BLOOD,URINE NEGATIVE (Neg)
[2024-11-28 13:18] LABS: UA COLLECTION TYPE NON-SPECIFIED
--- NOTE | 2024-11-28 14:53 | RADIOLOGY REPORT ---
INDICATION: Bilateral foot infections, maggots COMPARISON: CT CT LOWER EXTREMITY on DOS: 09/04/24 TECHNIQUE: CT of the bilateral lower extremity was performed without contrast. Volume transverse imag es were obtained and reconstructed in multiple planes using bone and soft tissue algorithms. Radiation Dose Information: CT Dose: CTDI volume is 11.3 mGy. Dose-length product is 749 mGy*cm FINDINGS/IMPRESSION: No acute fracture or dislocation. Joint spaces are maintained. No cortical destruction or periosteal reaction. Severe diffuse soft-tissue swelling , skin thickening and edema in the bilateral lower extr emities, [id number]-right. This is suggestive of cellulitis.
[2024-11-28] MEDS: piperacillin/tazo 4.5gm/100ml 100 ML IV SCH (16:25)
[2024-11-28 16:45] VITALS: BP 145/68; PULSE 112; RESP 18; TEMP 99.1; O2SAT 98
[2024-11-28 18:00] VITALS: BP 130/59; PULSE 107; RESP 18; TEMP 98; O2SAT 97
[2024-11-28] MEDS ORDERED: NO HOME MEDS (18:26)
--- NOTE | 2024-11-28 19:03 | HISTORY AND PHYSICAL ---
History & Physical Providers to CC ~ History of Present Illness Reason for Admit\Complaint: Bilateral severe tinea pedis with secondary to bacterial infection History of Present Illness This is a 28-year-old morbidly obese male who presents to ED with bilateral foot wounds- the patient has not removed his shoes in 1-1/2 months however he has showered when in the ED issues were removed a numerous maggots were found the patient has feet that are severely foul-smelling and the skin is very macerated. The patient has a severe fungal infection of the feet as well as a bilateral l ikely bacterial infection of the feet. A CT scan was negative for osteomyelitis. IV Zosyn and IV vancomycin is ordered along with IV fluconazole. Wound care consult is ordered. Allergies: Coded Allergies: No Known Allergies (Unverified , 11/28/24) Home Medications Home Medications Active Reported No Home Medications (Home Med List) Each Past Medical History Past Medical History Asthma Morbid obesity Hypertension Tetralogy of Fallot Past Surgical History Surgical History Comment Open heart surgery at six months old for tetralogy of Fallot Family History Family History: FH: diabetes mellitus FH: heart attack FH: hypertension FH: lupus FHx: diabetes mellitus Paternal grandmother Past Social History Social History Comment Patient denes history of smoking/ drinking alcohol nor any illicit drug use Full Code Status ROS ROS Except for positives in the HPI the rest of the 14 point review systems is negative Exam Vitals: Vital Signs Date Time Temp Pulse Resp B/P (MAP) Pulse Ox O2 Delivery O2 Flow Rate FiO2 11/28/24 16:45 99.1 112 18 145/68 (93) 98 Room Air 11/28/24 15:35 0 General: Gen. No acute distress alert and oriented 4, morbidly obese Lungs clear to ascultation bilaterally, no wheezes rales or rhonchi appreciated Heart normal sinus rhythm no murmurs rubs or clicks noted Abdomen soft nontender bowel sounds are normoactive Lower extremites/ feet- majority of the toes the skin is white and peeling off. Diagnostic Data Last Recorded Lab Results: 11/28/24 0951 11/28/24 0951 Advance Care Planning Advanced Care plannin - 30 Minutes Problems: (1) Infestation, maggots Status: Acute Additional Plan # bilateral severe tinea pedis with secondary to bacterial infection CT scan was negative for osteomyelitis IV vancomycin IV Zosyn IV fluconazole Wound care consult Likely will require Infectious Disease consult as well # history of drop foot Continue AFO # morbid obesity Not likely a candidate for bariatric surgery since the patient will likely not be compliant with the post surgery instructions and recommendations # hypokalemia potassium replacement protocol # DVT prophylaxis Lovenox Date of Service: Nov 28, 2024 Billing Provider: ANIA ELIZONDO DO Common Visit Codes: [id number] INP/OBS CARE (HIGH) Secondary Visit Codes: [id number] CARE PLAN 30 MINUTES ANIA ELIZONDO DO Nov 28, 2024 19:03
[2024-11-28 20:00] VITALS: RESP 18; O2SAT 97
[2024-11-28] MEDS: K and/or MAG REPLACEMENT MC SCH (20:00)
[2024-11-28] MEDS: docusate sod 100mg capsule PO SCH (20:28)
[2024-11-28] MEDS: HYDROcodone/acetaminophen 10/325mg tab PO PRN (20:28)
[2024-11-28] MEDS: enoxaparin 40mg/0.4ml syringe SQ SCH (20:29)
[2024-11-28] MEDS: vancomycin/NS 1 GM ADD-VANTAGE 250 ML IV SCH (20:29)
[2024-11-28 22:00] VITALS: BP 116/65; PULSE 86; RESP 14; TEMP 98; O2SAT 97
[2024-11-28] MEDS: potassium Cl 20 mEq SR tablet PO PRN (22:40)
[2024-11-29] VITALS (7 sets, daily range): BP systolic 128–151; BP diastolic 47–70; PULSE 75–96; RESP 14–24; TEMP 97.8–98.5; O2SAT 16–98
[2024-11-29 05:00] LABS: MEAN PLATELET VOLUME 8.0 FL (7.4-10.4); RED CELL DISTRIBUTION WIDTH 15.7 % (11.5-14.5)
[2024-11-29 05:14] LABS: CREATININE 0.73 MG/DL (0.60-1.10); TOTAL CARBON DIOXIDE 28.9 MMOL/L (24-32); eCRCL 134 ML/MIN; eGFR > 90 ML/MIN
--- NOTE | 2024-11-29 07:48 | ELECTROCARDIOGRAPH REPORT ---
[facility] Test Date: 2024-11-28 Test Time: 09:33:37 Pat Name: BOB GREENWOOD Department: EMERGENCY ROOM Room: [place] [address] A Gender: M Nursing Home Physician: EFREN : 1995 Requested By: RASHAD COLON Order Number: [id number] Reading MD: Dr. Rashad Colon Measurements Intervals [place] Rate: 120 P: 0 AL: 0 QRS: -5 QRSD: 152 T: 33 QT: 337 QTc: 477 Interpretive Statements Junctional tachycardia Right bundle branch block Abnormal inferior Q waves Electronically Signed On 11-29-2024 8:05:[address] Rashad Colon Please click the below link to view image of tracing.
[2024-11-29] MEDS: VANCOMYCIN LEVEL IV ONE (11:16)
--- NOTE | 2024-11-29 20:29 | PROGRESS NOTE ---
Daily Progress Note Providers to CC Feels better today, less pain in the lower extremity ~ Central Line/PICC still needed: No Roberts-Non Protocol Roberts Indications Met/Not Met: F/C Indications Not Met Antibiotic Timeout Antibiotic Ordered?: Yes MRSA Education MRSA Education Provided to pt: Yes Subjective As above Objective Vital Signs Date Time Temp Pulse Resp B/P (MAP) Pulse Ox O2 Delivery O2 Flow Rate FiO2 11/29/24 12:03 96 144/69 (94) 11/29/24 10:00 97.8 16 98 Room Air 11/29/24 04:50 0 21 Vital signs, stable ,afebrile. Pulse Oximetry reflects adequate oxygenation. BMI is 58, weight 165 kg General: well developed, well nourished. Awake , alert, and oriented x4, resting comfortably in the bed, in no acute distress . Skin: Warm, dry, no pallor, no rash or petechiae. HEENT: Atraumatic, normocephalic, EOMI, anicteric sclera B; pink conjunctiva; PERRLA, normal oropharynx, moist oral and nasal mucosa. Tympanic membrane , nose , throat clear. Neck: Trachea midline. Supple, full range of motion, no JVD, bruit , hepatojugular reflex , lymphadenopathy or masses, or other lesions Cardiac: Regular rhythm, regular rate no murmurs, rubs, or gallops. Normal S1 and S2, no S3 noticed. PMI is normal. Respiratory: Equal breath sounds bilaterally, no tachypnea; lungs clear to auscultation bilaterally, no wheezing ,rub or rales, or crackles. Chest wall is symmetric and without deformity. No signs of trauma. Chest wall is nontender. No signs of respiratory distress. Resonance is normal upon percussion bilaterally. Gastrointestinal: Abdomen symmetric, non-distended, soft, non-tender, normal bowel sounds x4 quadrant, normoactive, no hepatosplenomegaly , no masses , no bruit, no flank pain bilaterally. No voluntary guarding, rebound, or rigidity. No tenderness to percussion. No pulsatile masses. Equal femoral pulses. No Ruiz's sign or McBurney point tenderness. Back; no CVA tenderness bilaterally, no deformities. Neck and back are without deformity as well. No tenderness noted on palpation of the spinous processes. Spinous processes are midline. Cervical, thoracic, and lumbar paraspinal muscles are not tender and are without spasm. : normal external genitalia, without lesions, swelling, masses or tenderness. Musculoskeletal: Extremities, normal range of motion, non-tender, muscle strength 5/5 x 4. Negative Homans signs bilaterally on lower extremity. Distal pulses full symmetrical, no clubbing, cyanosis , edema. Locally, bilateral lower extremity dressing clean dry intact, neurovascular grossly intact Neurological: Speech is clear, alert, and oriented x 4. No motor or sensory deficit, deep tendon reflexes normal, cerebellar intact. Cranial nerves II-XII intact. Psych: Alert and or appropriate, normal affect. Vascular: Good distal pulses, which are equal x4; capillary refill less than 2 seconds. Lymphatic, no lymphadenopathy. Result Diagram: 11/29/2442111/29/24421 Problem\Assessment\Plan Problems/Diagnosis: (1) Infestation, maggots Assessment/plan 1) Infestation, maggots Status: Acute Additional Plan # bilateral severe tinea pedis with secondary to bacterial infection CT scan was negative for osteomyelitis IV vancomycin IV Zosyn IV fluconazole Wound care consult Likely will require Infectious Disease consult as well # history of drop foot Continue AFO # morbid obesity Not likely a candidate for bariatric surgery since the patient will likely not be compliant with the post surgery instructions and recommendations # hypokalemia potassium replacement protocol # DVT prophylaxis Lovenox Sepsis Screening Reassessment Date: Nov 29, 2024 Date of Service: Nov 29, 2024 Billing Provider: ERICK RUIZ MD Common Visit Codes: [id number] INP/OBS CARE(HIGH) ERICK RUIZ MD Nov 29, 2024 20:29
[2024-11-29] MEDS: VANCOmycin 1250MG/NS 250ml Bag 250 ML IV SCH (20:34)
[2024-11-30 03:50] VITALS: O2SAT 95
[2024-11-30 04:36] LABS: MEAN PLATELET VOLUME 8.1 FL (7.4-10.4); RED CELL DISTRIBUTION WIDTH 15.6 % (11.5-14.5)
[2024-11-30 04:54] LABS: CREATININE 0.70 MG/DL (0.60-1.10); TOTAL CARBON DIOXIDE 30.1 MMOL/L (24-32); eCRCL 139 ML/MIN; eGFR > 90 ML/MIN
[2024-11-30 06:00] VITALS: BP 149/79; PULSE 83; RESP 20; TEMP 98.2; O2SAT 97
[2024-11-30 10:00] VITALS: BP 147/80; PULSE 85; RESP 20; TEMP 97.8; O2SAT 96
--- NOTE | 2024-11-30 15:55 | RADIOLOGY REPORT ---
EXAM: DI HAND, COMPLETE (3VW MIN) CLINICAL HISTORY: L hand deformity COMPARISON: None TECHNIQUE: DI HAND, COMPLETE (3VW MIN) Findings/Impression: 3 views of the left hand. There is no evidence of an acute fracture, dislocation, blastic, or lytic lesions. Possible subluxati on of the 5th PIP joint. No radiopaque foreign bodies. No superficial soft tissue abnormalities.
[2024-11-30] MEDS: JUVEN Smoothie Arginine/Glut./Ca2+Bmb (Juven 19.3pkt) 240ml cup PO SCH (17:33)
[2024-11-30 18:00] VITALS: BP 152/83; PULSE 91; RESP 20; TEMP 98.8; O2SAT 96
[2024-11-30] MEDS: VANCOMYCIN LEVEL IV ONE (18:30)
--- NOTE | 2024-11-30 19:38 | PROGRESS NOTE ---
Daily Progress Note Providers to CC Feels better today, still pain persistent bilateral lower extremity edema moderately present in bilateral lower extremity ~ Central Line/PICC still needed: No Roberts-Non Protocol Roberts Indications Met/Not Met: F/C Indications Not Met Antibiotic Timeout Antibiotic Ordered?: Yes MRSA Education MRSA Education Provided to pt: Yes Subjective As above Objective Vital Signs Date Time Temp Pulse Resp B/P (MAP) Pulse Ox O2 Delivery O2 Flow Rate FiO2 11/30/24 10:00 97.8 85 20 147/80 (102) 96 Room Air 11/30/24 03:50 0 21 Vital signs, stable ,afebrile. Pulse Oximetry reflects adequate oxygenation. General: well developed, well nourished. Awake , alert, and oriented x4, resting comfortably in the bed, in no acute distress . Skin: Warm, dry, no pallor, no rash or petechiae. HEENT: Atraumatic, normocephalic, EOMI, anicteric sclera B; pink conjunctiva; PERRLA, normal oropharynx, moist oral and nasal mucosa. Tympanic membrane , nose , throat clear. Neck: Trachea midline. Supple, full range of motion, no JVD, bruit , hepatojugular reflex , lymphadenopathy or masses, or other lesions Cardiac: Regular rhythm, regular rate no murmurs, rubs, or gallops. Normal S1 and S2, no S3 noticed. PMI is normal. Respiratory: Equal breath sounds bilaterally, no tachypnea; lungs clear to auscultation bilaterally, no wheezing ,rub or rales, or crackles. Chest wall is symmetric and without deformity. No signs of trauma. Chest wall is nontender. No signs of respiratory distress. Resonance is normal upon percussion bilaterally. Gastrointestinal: Abdomen symmetric, non-distended, soft, non-tender, normal bowel sounds x4 quadrant, normoactive, no hepatosplenomegaly , no masses , no bruit, no flank pain bilaterally. No voluntary guarding, rebound, or rigidity. No tenderness to percussion. No pulsatile masses. Equal femoral pulses. No Ruiz's sign or McBurney point tenderness. Back; no CVA tenderness bilaterally, no deformities. Neck and back are without deformity as well. No tenderness noted on palpation of the spinous processes. Spinous processes are midline. Cervical, thoracic, and lumbar paraspinal muscles are not tender and are without spasm. : normal external genitalia, without lesions, swelling, masses or tenderness. Musculoskeletal: Extremities, normal range of motion, non-tender, muscle strength 5/5 x 4. Negative Homans signs bilaterally on lower extremity. Distal pulses full symmetrical, no clubbing, cyanosis , edema. Locally, bilateral lower extremity plus three edema, dressing clean dry intact, neurovascular grossly intact Neurological: Speech is clear, alert, and oriented x 4. No motor or sensory deficit, deep tendon reflexes normal, cerebellar intact. Cranial nerves II-XII intact. Psych: Alert and or appropriate, normal affect. Vascular: Good distal pulses, which are equal x4; capillary refill less than 2 seconds. Lymphatic, no lymphadenopathy. Result Diagram: 11/30/2441811/30/24418 Problem\Assessment\Plan Problems/Diagnosis: (1) Infestation, maggots Assessment/plan 1) Infestation, maggots Status: Acute Additional Plan # bilateral severe tinea pedis with secondary to bacterial infection CT scan was negative for osteomyelitis IV vancomycin IV Zosyn IV fluconazole Wound care consult Likely will require Infectious Disease consult as well # history of drop foot Continue AFO # morbid obesity Not likely a candidate for bariatric surgery since the patient will likely not be compliant with the post surgery instructions and recommendations # hypokalemia potassium replacement protocol # DVT prophylaxis Lovenox Sepsis Screening Reassessment Date: Nov 30, 2024 Date of Service: Nov 30, 2024 Billing Provider: ERICK RUIZ MD Common Visit Codes: [id number] INP/OBS CARE(HIGH) ERICK RUIZ MD Nov 30, 2024 19:38
[2024-11-30 20:00] VITALS: RESP 20; O2SAT 96
[2024-11-30 22:00] VITALS: BP 157/84; PULSE 89; RESP 14; TEMP 98.3; O2SAT 93
[2024-12-01] VITALS (7 sets, daily range): BP systolic 128–152; BP diastolic 66–76; PULSE 78–93; RESP 16–22; TEMP 97.7–98.6; O2SAT 94–99
[2024-12-01 04:54] LABS: MEAN PLATELET VOLUME 8.2 FL (7.4-10.4); RED CELL DISTRIBUTION WIDTH 15.8 % (11.5-14.5)
[2024-12-01 05:15] LABS: CREATININE 0.67 MG/DL (0.60-1.10); TOTAL CARBON DIOXIDE 31.6 MMOL/L (24-32); eCRCL 145 ML/MIN; eGFR > 90 ML/MIN
--- NOTE | 2024-12-01 18:30 | PROGRESS NOTE ---
Daily Progress Note Providers to CC ~ no new complaint today, resting comfortably in the bed Central Line/PICC still needed: No Roberts-Non Protocol Roberts Indications Met/Not Met: F/C Indications Not Met Antibiotic Timeout Antibiotic Ordered?: Yes MRSA Education MRSA Education Provided to pt: Yes Subjective As above Objective Vital Signs Date Time Temp Pulse Resp B/P (MAP) Pulse Ox O2 Delivery O2 Flow Rate FiO2 12/01/24 16:11 99 Room Air* 0 21 12/01/24 11:55 98.4 78 16 142/76 (98) Vital signs, stable ,afebrile. Pulse Oximetry reflects adequate oxygenation. General: well developed, well nourished. Awake , alert, and oriented x4, resting comfortably in the bed, in no acute distress . Skin: Warm, dry, no pallor, no rash or petechiae. HEENT: Atraumatic, normocephalic, EOMI, anicteric sclera B; pink conjunctiva; PERRLA, normal oropharynx, moist oral and nasal mucosa. Tympanic membrane , nose , throat clear. Neck: Trachea midline. Supple, full range of motion, no JVD, bruit , hepatojugular reflex , lymphadenopathy or masses, or other lesions Cardiac: Regular rhythm, regular rate no murmurs, rubs, or gallops. Normal S1 and S2, no S3 noticed. PMI is normal. Respiratory: Equal breath sounds bilaterally, no tachypnea; lungs clear to auscultation bilaterally, no wheezing ,rub or rales, or crackles. Chest wall is symmetric and without deformity. No signs of trauma. Chest wall is nontender. No signs of respiratory distress. Resonance is normal upon percussion bilaterally. Gastrointestinal: Abdomen symmetric, non-distended, soft, non-tender, normal bowel sounds x4 quadrant, normoactive, no hepatosplenomegaly , no masses , no bruit, no flank pain bilaterally. No voluntary guarding, rebound, or rigidity. No tenderness to percussion. No pulsatile masses. Equal femoral pulses. No Ruiz's sign or McBurney point tenderness. Back; no CVA tenderness bilaterally, no deformities. Neck and back are without deformity as well. No tenderness noted on palpation of the spinous processes. Spinous processes are midline. Cervical, thoracic, and lumbar paraspinal muscles are not tender and are without spasm. : normal external genitalia, without lesions, swelling, masses or tenderness. Musculoskeletal: Extremities, normal range of motion, non-tender, muscle strength 5/5 x 4. Negative Homans signs bilaterally on lower extremity. Distal pulses full symmetrical, no clubbing, cyanosis , edema. Locally, bilateral lower extremity plus three edema dressing clean dry intact, neurovascular grossly intact Neurological: Speech is clear, alert, and oriented x 4. No motor or sensory deficit, deep tendon reflexes normal, cerebellar intact. Cranial nerves II-XII intact. Psych: Alert and or appropriate, normal affect. Vascular: Good distal pulses, which are equal x4; capillary refill less than 2 seconds. Lymphatic, no lymphadenopathy. Result Diagram: 12/01/2442212/01/24422 Problem\Assessment\Plan Problems/Diagnosis: (1) Infestation, maggots Assessment/plan 1) Infestation, maggots Status: Acute Additional Plan # bilateral severe tinea pedis with secondary to bacterial infection CT scan was negative for osteomyelitis IV vancomycin IV Zosyn IV fluconazole Wound care consult Likely will require Infectious Disease consult as well # history of drop foot Continue AFO # morbid obesity Not likely a candidate for bariatric surgery since the patient will likely not be compliant with the post surgery instructions and recommendations # hypokalemia potassium replacement protocol # DVT prophylaxis Lovenox Date of Service: Dec 01, 2024 Billing Provider: ERICK RUIZ MD Common Visit Codes: [id number] INP/OBS CARE(HIGH) ERICK RUIZ MD Dec 01, 2024 18:30
[2024-12-02 03:32] LABS: MEAN PLATELET VOLUME 8.6 FL (7.4-10.4); RED CELL DISTRIBUTION WIDTH 16.0 % (11.5-14.5)
[2024-12-02 03:37] LABS: CREATININE 0.71 MG/DL (0.60-1.10); TOTAL CARBON DIOXIDE 30.4 MMOL/L (24-32); eCRCL 137 ML/MIN; eGFR > 90 ML/MIN
[2024-12-02 06:47] VITALS: BP 148/69; PULSE 84; RESP 20; TEMP 99.3; O2SAT 95
[2024-12-02 08:00] VITALS: RESP 16
[2024-12-02 10:00] VITALS: BP 142/60; PULSE 77; RESP 15; TEMP 97.2; O2SAT 95
--- NOTE | 2024-12-02 15:36 | PROGRESS NOTE ---
Daily Progress Note Providers to CC Feels better today less pain and inflammation and swelling in bilateral lower extremity ~ Central Line/PICC still needed: No Roberts-Non Protocol Roberts Indications Met/Not Met: F/C Indications Not Met Antibiotic Timeout Antibiotic Ordered?: Yes MRSA Education MRSA Education Provided to pt: Yes Subjective As above Objective Vital Signs Date Time Temp Pulse Resp B/P (MAP) Pulse Ox O2 Delivery O2 Flow Rate FiO2 12/02/24 10:00 97.2 77 15 142/60 (87) 95 12/02/24 08:00 Room Air 12/01/24 16:11 0 21 Vital signs, stable ,afebrile. Pulse Oximetry reflects adequate oxygenation. BMI is General: well developed, well nourished. Awake , alert, and oriented x4, resting comfortably in the bed, in no acute distress . Skin: Warm, dry, no pallor, no rash or petechiae. HEENT: Atraumatic, normocephalic, EOMI, anicteric sclera B; pink conjunctiva; PERRLA, normal oropharynx, moist oral and nasal mucosa. Tympanic membrane , nose , throat clear. Neck: Trachea midline. Supple, full range of motion, no JVD, bruit , hepatojugular reflex , lymphadenopathy or masses, or other lesions Cardiac: Regular rhythm, regular rate no murmurs, rubs, or gallops. Normal S1 and S2, no S3 noticed. PMI is normal. Respiratory: Equal breath sounds bilaterally, no tachypnea; lungs clear to auscultation bilaterally, no wheezing ,rub or rales, or crackles. Chest wall is symmetric and without deformity. No signs of trauma. Chest wall is nontender. No signs of respiratory distress. Resonance is normal upon percussion bilaterally. Gastrointestinal: Abdomen symmetric, non-distended, soft, non-tender, normal bowel sounds x4 quadrant, normoactive, no hepatosplenomegaly , no masses , no bruit, no flank pain bilaterally. No voluntary guarding, rebound, or rigidity. No tenderness to percussion. No pulsatile masses. Equal femoral pulses. No Ruiz's sign or McBurney point tenderness. Back; no CVA tenderness bilaterally, no deformities. Neck and back are without deformity as well. No tenderness noted on palpation of the spinous processes. Spinous processes are midline. Cervical, thoracic, and lumbar paraspinal muscles are not tender and are without spasm. : normal external genitalia, without lesions, swelling, masses or tenderness. Musculoskeletal: Extremities, normal range of motion, non-tender, muscle strength 5/5 x 4. Negative Homans signs bilaterally on lower extremity. Distal pulses full symmetrical, no clubbing, cyanosis ;, Locally, bilateral lower legs plus three edema red tender to palpation associated with scaly erosive changes, dressing clean dry intact Neurological: Speech is clear, alert, and oriented x 4. No motor or sensory deficit, deep tendon reflexes normal, cerebellar intact. Cranial nerves II-XII intact. Psych: Alert and or appropriate, normal affect. Vascular: Good distal pulses, which are equal x4; capillary refill less than 2 seconds. Lymphatic, no lymphadenopathy. 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
[2024-12-02 18:00] VITALS: BP 143/64; PULSE 79; RESP 16; TEMP 97.6; O2SAT 95
[2024-12-02 22:00] VITALS: BP 122/55; PULSE 72; RESP 18; TEMP 98.2; O2SAT 97
[2024-12-03 05:00] VITALS: BP 116/75; PULSE 71; RESP 20; TEMP 97.8; O2SAT 96
[2024-12-03 06:46] LABS: MEAN PLATELET VOLUME 7.6 FL (7.4-10.4); RED CELL DISTRIBUTION WIDTH 15.9 % (11.5-14.5)
[2024-12-03 07:37] LABS: CREATININE 0.71 MG/DL (0.60-1.10); TOTAL CARBON DIOXIDE 28.8 MMOL/L (24-32); eCRCL 137 ML/MIN; eGFR > 90 ML/MIN
[2024-12-03 10:00] VITALS: BP 129/70; PULSE 76; RESP 16; TEMP 98.5; O2SAT 93
--- NOTE | 2024-12-03 17:33 | PROGRESS NOTE ---
Daily Progress Note Providers to CC Feels better today, less redness edema of lower legs ~ Central Line/PICC still needed: No Roberts-Non Protocol Roberts Indications Met/Not Met: F/C Indications Not Met Antibiotic Timeout Antibiotic Ordered?: Yes MRSA Education MRSA Education Provided to pt: Yes Subjective As above Objective Vital Signs Date Time Temp Pulse Resp B/P (MAP) Pulse Ox O2 Delivery O2 Flow Rate FiO2 12/03/24 10:00 98.5 76 16 129/70 (89) 93 12/03/24 08:00 Room Air 0.0 21 Vital signs, stable ,afebrile. Pulse Oximetry reflects adequate oxygenation. General: well developed, well nourished. Awake , alert, and oriented x4, resting comfortably in the bed, in no acute distress . Skin: Warm, dry, no pallor, no rash or petechiae. HEENT: Atraumatic, normocephalic, EOMI, anicteric sclera B; pink conjunctiva; PERRLA, normal oropharynx, moist oral and nasal mucosa. Tympanic membrane , nose , throat clear. Neck: Trachea midline. Supple, full range of motion, no JVD, bruit , hepatojugular reflex , lymphadenopathy or masses, or other lesions Cardiac: Regular rhythm, regular rate no murmurs, rubs, or gallops. Normal S1 and S2, no S3 noticed. PMI is normal. Respiratory: Equal breath sounds bilaterally, no tachypnea; lungs clear to auscultation bilaterally, no wheezing ,rub or rales, or crackles. Chest wall is symmetric and without deformity. No signs of trauma. Chest wall is nontender. No signs of respiratory distress. Resonance is normal upon percussion bilaterally. Gastrointestinal: Abdomen symmetric, non-distended, soft, non-tender, normal bowel sounds x4 quadrant, normoactive, no hepatosplenomegaly , no masses , no bruit, no flank pain bilaterally. No voluntary guarding, rebound, or rigidity. No tenderness to percussion. No pulsatile masses. Equal femoral pulses. No Ruiz's sign or McBurney point tenderness. Back; no CVA tenderness bilaterally, no deformities. Neck and back are without deformity as well. No tenderness noted on palpation of the spinous processes. Spinous processes are midline. Cervical, thoracic, and lumbar paraspinal muscles are not tender and are without spasm. : normal external genitalia, without lesions, swelling, masses or tenderness. Musculoskeletal: Extremities, normal range of motion, non-tender, muscle strength 5/5 x 4. Negative Homans signs bilaterally on lower extremity. Distal pulses full symmetrical, no clubbing, cyanosis; bilateral lower extremity + two edema, red with epidermal scaling, mild tender to palpation, dressing clean dry intact Neurological: Speech is clear, alert, and oriented x 4. No motor or sensory deficit, deep tendon reflexes normal, cerebellar intact. Cranial nerves II-XII intact. Psych: Alert and or appropriate, normal affect. Vascular: Good distal pulses, which are equal x4; capillary refill less than 2 seconds. Lymphatic, no lymphadenopathy. 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 IV vancomycin IV Zosyn IV fluconazole Wound care consult Likely will require Infectious Disease consult as well # history of drop foot Continue AFO # morbid obesity Not likely a candidate for bariatric surgery since the patient will likely not be compliant with the post surgery instructions and recommendations # hypokalemia potassium replacement protocol # DVT prophylaxis Lovenox Disposition, may be discharged in the morning Sepsis Screening Reassessment Date: Dec 03, 2024 Date of Service: Dec 03, 2024 Billing Provider: ERICK RUIZ MD Common Visit Codes: [id number] INP/OBS CARE(HIGH) ERICK RUIZ MD Dec 03, 2024 17:32
[2024-12-03 18:00] VITALS: BP 140/74; PULSE 74; RESP 19; TEMP 97.6; O2SAT 97
[2024-12-03 22:00] VITALS: BP 148/69; PULSE 84; RESP 16; TEMP 99.3; O2SAT 95
[2024-12-04 05:00] VITALS: BP 126/66; PULSE 74; RESP 20; TEMP 97.9; O2SAT 96
[2024-12-04 10:00] VITALS: BP 119/51; PULSE 81; RESP 19; TEMP 98.2; O2SAT 95
[2024-12-04 18:00] VITALS: BP 131/61; PULSE 74; RESP 19; TEMP 98.5; O2SAT 98
[2024-12-04 20:00] VITALS: RESP 20
--- NOTE | 2024-12-04 20:57 | PROGRESS NOTE ---
Daily Progress Note Providers to CC ~ Antibiotic Timeout Antibiotic Ordered?: Yes Subjective Patient was seen in his room looked comfortable watching TV. According to patient physical therapy team they throw away his AFO boots and he can not go without his AFO boot. As per physical therapy they will order the AFO boots and I signed the document regarding it . Objective Vital Signs Date Time Temp Pulse Resp B/P (MAP) Pulse Ox O2 Delivery O2 Flow Rate FiO2 12/04/24 10:00 98.2 81 19 119/51 (73) 95 Room Air 12/04/24 08:00 0.0 21 Result Diagram: 12/03/24 0632 12/03/24 0632 General: Morbidly obese male, Awake and Alert, no acute distress. HEENT: Conjunctiva pink, Sclera clear, Mucus Membranes moist. Neck: Supple without masses and tenderness. Resp: Unlabored. Equal breath sounds bilaterally. Heart: Regular rhythm, normal S1 and S2, no rub, murmur or gallop. Abdomen: Soft and non tender no organomegaly. Normal bowel sounds x4 quadrant normoactive. No guarding or rigidity. Extremities: Signs of chronic Bilateral lower extremity erythema and edema extending up to the knee R>L,extremity. 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 Skin: Warm and Dry. 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 Collar Worker aware regarding discharge plan. possible discharge once he get AFO boots Date of Service: Dec 04, 2024 Billing Provider: SHERLYN FORTE MD Common Visit Codes: [id number] INP/OBS CARE(HIGH) SHERLYN FORTE MD Dec 04, 2024 20:57
[2024-12-04 22:00] VITALS: BP 146/67; PULSE 71; RESP 20; TEMP 98; O2SAT 98
[2024-12-05 03:24] VITALS: O2SAT 96
[2024-12-05 05:00] VITALS: BP 137/65; PULSE 72; RESP 18; TEMP 98.7; O2SAT 97
[2024-12-05 09:14] LABS: MEAN PLATELET VOLUME 8.2 FL (7.4-10.4); RED CELL DISTRIBUTION WIDTH 16.0 % (11.5-14.5)
[2024-12-05 09:30] LABS: CREATININE 0.68 MG/DL (0.60-1.10); TOTAL CARBON DIOXIDE 28.0 MMOL/L (24-32); eCRCL 143 ML/MIN; eGFR > 90 ML/MIN
[2024-12-05 11:00] VITALS: BP 132/69; PULSE 83; RESP 20; TEMP 97.4; O2SAT 95
--- NOTE | 2024-12-05 17:19 | PROGRESS NOTE ---
Daily Progress Note Providers to CC ~ Antibiotic Timeout Antibiotic Ordered?: Yes Subjective Patient waiting to get his AFO boot and physical therapy team working on it. No other new concerns Objective Vital Signs Date Time Temp Pulse Resp B/P (MAP) Pulse Ox O2 Delivery O2 Flow Rate FiO2 12/05/24 11:00 97.4 83 20 132/69 (90) 95 Room Air 12/05/24 08:00 0.0 21 Result Diagram: 12/05/24 0857 12/05/2457 General: Morbidly obese male, Awake and Alert, no acute distress. HEENT: Conjunctiva pink, Sclera clear, Mucus Membranes moist. Neck: Supple without masses and tenderness. Resp: Unlabored. Equal breath sounds bilaterally. Heart: Regular rhythm, normal S1 and S2, no rub, murmur or gallop. Abdomen: Soft and non tender no organomegaly. Normal bowel sounds x4 quadrant normoactive. No guarding or rigidity. Extremities: Signs of chronic Bilateral lower extremity erythema and edema extending up to the knee R>L,extremity. 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 Skin: Warm and Dry. 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 Control Cabinet Assembler aware regarding discharge plan. possible discharge once he get AFO boots Date of Service: Dec 05, 2024 Billing Provider: SHERLYN FORTE MD Common Visit Codes: [id number] INP/OBS CARE(HIGH) SHERLYN FORTE MD Dec 05, 2024 17:19
[2024-12-05 18:00] VITALS: BP 129/63; PULSE 78; RESP 19; TEMP 98.7; O2SAT 98
[2024-12-05 22:00] VITALS: BP 156/54; PULSE 67; RESP 17; TEMP 98.3; O2SAT 97
[2024-12-06 06:00] VITALS: BP 134/67; PULSE 68; RESP 19; TEMP 97.8; O2SAT 99
[2024-12-06 08:01] LABS: MEAN PLATELET VOLUME 8.7 FL (7.4-10.4); RED CELL DISTRIBUTION WIDTH 16.0 % (11.5-14.5)
[2024-12-06 08:18] LABS: CREATININE 0.59 MG/DL (0.60-1.10); TOTAL CARBON DIOXIDE 25.4 MMOL/L (24-32); eCRCL 165 ML/MIN; eGFR > 90 ML/MIN
[2024-12-06 10:00] VITALS: BP 133/69; PULSE 76; RESP 17; TEMP 98; O2SAT 97
[2024-12-06 18:00] VITALS: BP 127/65; PULSE 73; RESP 17; TEMP 97.2; O2SAT 98
[2024-12-06 20:00] VITALS: RESP 17; O2SAT 98
--- NOTE | 2024-12-06 20:38 | PROGRESS NOTE ---
Daily Progress Note Providers to CC ~ Antibiotic Timeout Antibiotic Ordered?: Yes Subjective Patient looks comfortable watching TV . Waiting to get his AFO boots before his discharge Objective Vital Signs Date Time Temp Pulse Resp B/P (MAP) Pulse Ox O2 Delivery O2 Flow Rate FiO2 12/06/24 10:00 98.0 76 17 133/69 (90) 97 Room Air 12/05/24 20:00 0.0 21 Result Diagram: 12/06/24 0737 12/06/24 0737 General: Morbidly obese male, Awake and Alert, no acute distress. HEENT: Conjunctiva pink, Sclera clear, Mucus Membranes moist. Neck: Supple without masses and tenderness. Resp: Unlabored. Equal breath sounds bilaterally. Heart: Regular rhythm, normal S1 and S2, no rub, murmur or gallop. Abdomen: Soft and non tender no organomegaly. Normal bowel sounds x4 quadrant normoactive. No guarding or rigidity. Extremities: Signs of chronic Bilateral lower extremity erythema and edema extending up to the knee R>L,extremity. SUPERVISOR BOARDING: No gross motor or sensory abnormalities. Skin: Warm and Dry. 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 Top Precipitator Operator aware regarding discharge plan. possible discharge once he get AFO boots Date of Service: Dec 06, 2024 Billing Provider: SHERLYN FORTE MD Common Visit Codes: [id number] INP/OBS CARE(MOD) SHERLYN FORTE MD Dec 06, 2024 20:38
[2024-12-06 22:00] VITALS: BP 115/63; PULSE 70; RESP 17; TEMP 97.8; O2SAT 98
[2024-12-07 06:00] VITALS: BP 118/62; PULSE 66; RESP 19; TEMP 98.1; O2SAT 99
[2024-12-07 07:02] LABS: MEAN PLATELET VOLUME 8.6 FL (7.4-10.4); RED CELL DISTRIBUTION WIDTH 16.3 % (11.5-14.5)
[2024-12-07 07:19] LABS: CREATININE 0.66 MG/DL (0.60-1.10); TOTAL CARBON DIOXIDE 29.1 MMOL/L (24-32); eCRCL 148 ML/MIN; eGFR > 90 ML/MIN
[2024-12-07 10:00] VITALS: BP 125/54; PULSE 77; RESP 16; TEMP 98.3; O2SAT 95
[2024-12-07 18:00] VITALS: BP 135/59; PULSE 81; RESP 16; TEMP 98.8; O2SAT 96
[2024-12-07] MEDS: VANCOMYCIN LEVEL IV ONE (18:30)
--- NOTE | 2024-12-07 19:57 | PROGRESS NOTE ---
Daily Progress Note Providers to CC ~ Antibiotic Timeout Antibiotic Ordered?: Yes Subjective Patient looks comfortable watching TV . Waiting to get his AFO boots before his discharge Objective Vital Signs Date Time Temp Pulse Resp B/P (MAP) Pulse Ox O2 Delivery O2 Flow Rate FiO2 12/07/24 10:00 98.3 77 16 125/54 (77) 95 Room Air 12/07/24 08:00 0.0 21 Result Diagram: 12/07/24 0616 12/07/24 0616 General: Morbidly obese male, Awake and Alert, no acute distress. HEENT: Conjunctiva pink, Sclera clear, Mucus Membranes moist. Neck: Supple without masses and tenderness. Resp: Unlabored. Equal breath sounds bilaterally. Heart: Regular rhythm, normal S1 and S2, no rub, murmur or gallop. Abdomen: Soft and non tender no organomegaly. Normal bowel sounds x4 quadrant normoactive. No guarding or rigidity. Extremities: Signs of chronic Bilateral lower extremity erythema and edema extending up to the knee R>L,extremity. BOARD MIXER TENDER: No gross motor or sensory abnormalities. Skin: Warm and Dry. 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 Transport Manager aware regarding discharge plan. possible discharge once he get AFO boots Date of Service: Dec 07, 2024 Billing Provider: SHERLYN FORTE MD Common Visit Codes: [id number] INP/OBS CARE(MOD) SHERLYN FORTE MD Dec 07, 2024 19:57
[2024-12-07 20:20] VITALS: RESP 16
[2024-12-07] MEDS: doxycycline 100mg/NS 100mL PB 100 ML IV SCH (21:34)
[2024-12-07 22:00] VITALS: BP 150/72; PULSE 85; RESP 18; TEMP 97.8; O2SAT 96
[2024-12-08 08:00] VITALS: RESP 16; O2SAT 98
[2024-12-08 08:17] LABS: MEAN PLATELET VOLUME 8.8 FL (7.4-10.4); RED CELL DISTRIBUTION WIDTH 16.7 % (11.5-14.5)
[2024-12-08 08:49] LABS: CREATININE 0.66 MG/DL (0.60-1.10); TOTAL CARBON DIOXIDE 28.6 MMOL/L (24-32); eCRCL 148 ML/MIN; eGFR > 90 ML/MIN
[2024-12-08 18:00] VITALS: BP 157/83; PULSE 86; RESP 16; TEMP 98.2; O2SAT 97
--- NOTE | 2024-12-08 19:56 | PROGRESS NOTE ---
Daily Progress Note Providers to CC ~ Antibiotic Timeout Antibiotic Ordered?: Yes Subjective Patient looks comfortable watching TV . Waiting to get his AFO boots before his discharge. We will plan for the rehab discharge for the patient Objective Vital Signs Date Time Temp Pulse Resp B/P (MAP) Pulse Ox O2 Delivery O2 Flow Rate FiO2 12/08/24 08:00 16 98 Room Air 12/07/24 22:00 97.8 85 150/72 (98) 12/07/24 20:20 0.0 21 Result Diagram: 12/08/2463212/08/24632 General: Morbidly obese male, Awake and Alert, no acute distress. HEENT: Conjunctiva pink, Sclera clear, Mucus Membranes moist. Neck: Supple without masses and tenderness. Resp: Unlabored. Equal breath sounds bilaterally. Heart: Regular rhythm, normal S1 and S2, no rub, murmur or gallop. Abdomen: Soft and non tender no organomegaly. Normal bowel sounds x4 quadrant normoactive. No guarding or rigidity. Extremities: Signs of chronic Bilateral lower extremity erythema and edema extending up to the knee R>L,extremity. HEREDITARY CANCER PROGRAM COORDINATOR: No gross motor or sensory abnormalities. Skin: Warm and Dry. 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 Hydroelectric Plant Structural Engineer aware regarding discharge plan. possible discharge once he get AFO boots Date of Service: Dec 08, 2024 Billing Provider: SHERLYN FORTE MD Common Visit Codes: [id number] INP/OBS CARE(HIGH) SHERLYN FORTE MD Dec 08, 2024 19:56
[2024-12-08 20:00] VITALS: RESP 16; O2SAT 97
[2024-12-08 22:00] VITALS: BP 140/59; PULSE 80; RESP 14; TEMP 97.5; O2SAT 96
[2024-12-09 06:19] LABS: MEAN PLATELET VOLUME 9.0 FL (7.4-10.4); RED CELL DISTRIBUTION WIDTH 16.6 % (11.5-14.5)
[2024-12-09 06:31] LABS: CREATININE 0.74 MG/DL (0.60-1.10); TOTAL CARBON DIOXIDE 29.7 MMOL/L (24-32); eCRCL 132 ML/MIN; eGFR > 90 ML/MIN
[2024-12-09 06:32] VITALS: BP_SYST 140; BP_DIAS 59; BP_DIAS 68; PULSE 76; PULSE 80; RESP 14; RESP 18; TEMP 97.5; TEMP 98.6; O2SAT 96; O2SAT 98
[2024-12-09 10:00] VITALS: BP 128/73; PULSE 90; RESP 16; TEMP 97.5; O2SAT 96
[2024-12-09 11:43] VITALS: RESP 16
[2024-12-09] MEDS ORDERED: polyethylene glycol 3350 17gm powd pack PO PRN (13:35)
--- NOTE | 2024-12-09 16:09 | PROGRESS NOTE ---
Daily Progress Note Providers to CC ~ Antibiotic Timeout Antibiotic Ordered?: Yes Subjective Patient looks comfortable watching TV . Waiting to get his AFO boots before his discharge. We will plan for the rehab discharge for the patient Objective Vital Signs Date Time Temp Pulse Resp B/P (MAP) Pulse Ox O2 Delivery O2 Flow Rate FiO2 12/09/24 11:43 16 Room Air 12/09/24 10:00 97.5 90 128/73 (91) 96 12/07/24 20:20 0.0 21 Result Diagram: 12/09/24 0531 12/09/24 0531 General: Morbidly obese male, Awake and Alert, no acute distress. HEENT: Conjunctiva pink, Sclera clear, Mucus Membranes moist. Neck: Supple without masses and tenderness. Resp: Unlabored. Equal breath sounds bilaterally. Heart: Regular rhythm, normal S1 and S2, no rub, murmur or gallop. Abdomen: Soft and non tender no organomegaly. Normal bowel sounds x4 quadrant normoactive. No guarding or rigidity. Extremities: Signs of chronic Bilateral lower extremity erythema and edema extending up to the knee R>L,extremity. 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 Skin: Warm and Dry. 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 Asphalt Spreader aware regarding discharge plan. possible discharge once he get AFO boots Date of Service: Dec 09, 2024 Billing Provider: SHERLYN FORTE MD Common Visit Codes: [id number] INP/OBS CARE(MOD) SHERLYN FORTE MD Dec 09, 2024 16:09
[2024-12-09 18:00] VITALS: BP 111/61; PULSE 98; RESP 16; TEMP 97.6; O2SAT 96
[2024-12-09 20:00] VITALS: RESP 16; O2SAT 96
[2024-12-09 22:00] VITALS: BP 136/54; PULSE 88; RESP 16; TEMP 98.3; O2SAT 97
[2024-12-10 06:29] VITALS: BP 147/73; PULSE 72; RESP 19; TEMP 98.2; O2SAT 98
[2024-12-10 06:32] LABS: MEAN PLATELET VOLUME 8.7 FL (7.4-10.4); RED CELL DISTRIBUTION WIDTH 16.5 % (11.5-14.5)
[2024-12-10 07:50] LABS: CREATININE 0.66 MG/DL (0.60-1.10); TOTAL CARBON DIOXIDE 29.4 MMOL/L (24-32); eCRCL 148 ML/MIN; eGFR > 90 ML/MIN
[2024-12-10 08:00] VITALS: RESP 16
[2024-12-10 10:00] VITALS: BP 142/69; PULSE 81; RESP 18; TEMP 98.2; O2SAT 97
[2024-12-10 20:00] VITALS: RESP 16; O2SAT 96
--- NOTE | 2024-12-10 20:04 | PROGRESS NOTE ---
Daily Progress Note Providers to CC ~ Antibiotic Timeout Antibiotic Ordered?: Yes Subjective Patient looks comfortable watching TV . Waiting to get his AFO boots before his discharge. We will plan for the rehab discharge for the patient Objective Vital Signs Date Time Temp Pulse Resp B/P (MAP) Pulse Ox O2 Delivery O2 Flow Rate FiO2 12/10/24 13:18 16 12/10/24 10:00 98.2 81 142/69 (93) 97 12/10/24 08:00 Room Air 12/07/24 20:20 0.0 21 Result Diagram: 12/10/24 0602 12/10/24 06 General: Morbidly obese male, Awake and Alert, no acute distress. HEENT: Conjunctiva pink, Sclera clear, Mucus Membranes moist. Neck: Supple without masses and tenderness. Resp: Unlabored. Equal breath sounds bilaterally. Heart: Regular rhythm, normal S1 and S2, no rub, murmur or gallop. Abdomen: Soft and non tender no organomegaly. Normal bowel sounds x4 quadrant normoactive. No guarding or rigidity. Extremities: Signs of chronic Bilateral lower extremity erythema and edema extending up to the knee R>L,extremity. 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 Skin: Warm and Dry. 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 Wellness Specialist aware regarding discharge plan. possible discharge once he get AFO boots Date of Service: Dec 10, 2024 Billing Provider: SHERLYN FORTE MD Common Visit Codes: [id number] INP/OBS CARE(MOD) SHERLYN FORTE MD Dec 10, 2024 20:04
[2024-12-11 06:00] VITALS: BP 123/53; PULSE 89; RESP 14; TEMP 97.8; O2SAT 98
[2024-12-11 08:00] VITALS: RESP 16
[2024-12-11 10:00] VITALS: BP 125/63; PULSE 81; RESP 20; TEMP 98.3; O2SAT 81
[2024-12-11 18:00] VITALS: BP 124/62; PULSE 93; RESP 20; TEMP 97.8; O2SAT 95
--- NOTE | 2024-12-11 18:36 | PROGRESS NOTE ---
Daily Progress Note Providers to CC ~ Antibiotic Timeout Antibiotic Ordered?: Yes Subjective The patient is to be fitted with AFOs today bilaterally, the patient is evaluated by [facility] rehab today the patient has not no acute complaints and that has significant improvement in the appearance of the patient's feet from that at the time of admission Objective Vital Signs Date Time Temp Pulse Resp B/P (MAP) Pulse Ox O2 Delivery O2 Flow Rate FiO2 12/11/24 10:00 98.3 81 20 125/63 (83) 81 Nasal Cannula 12/07/24 20:20 0.0 21 Result Diagram: 12/10/24 0602 12/10/24 06 Gen. No acute distress alert and oriented 4, morbidly obese Lungs clear to ascultation bilaterally, no wheezes rales or rhonchi appreciated Heart normal sinus rhythm no murmurs rubs or clicks noted Abdomen soft nontender bowel sounds are normoactive Lower extremites/ feet- majority of the toes the skin is white and peeling off. 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 IV doxycycline and IV fluconazole continue Wound care # history of drop foot Awaiting customer consulting manager to fit the patient for custom AFOs # morbid obesity Not likely a candidate for bariatric surgery since the patient will likely not be compliant with the post surgery instructions and recommendations # hypokalemia - resolved potassium replacement protocol # moderate protein calorie malnutrition Registered dietitian is following the patient # DVT prophylaxis Lovenox Disposition: Rehab once AFOs are obtained Date of Service: Dec 11, 2024 Billing Provider: ANIA ELIZONDO DO Common Visit Codes: [id number] INP/OBS CARE(HIGH) ANIA ELIZONDO DO Dec 11, 2024 18:36
[2024-12-11 20:00] VITALS: RESP 16; O2SAT 95
[2024-12-11 22:00] VITALS: BP 150/77; PULSE 84; RESP 18; TEMP 98.6; O2SAT 97
[2024-12-12] VITALS (7 sets, daily range): BP systolic 116–155; BP diastolic 69–83; PULSE 76–96; RESP 16–20; TEMP 97.5–98.5; O2SAT 95–100
--- NOTE | 2024-12-12 23:50 | PROGRESS NOTE ---
Daily Progress Note Providers to CC ~ Antibiotic Timeout Antibiotic Ordered?: Yes Subjective The patient is not happy that were continuing IV antibiotics, a midline IV was placed today the patient was fitted for his AFOs yesterday Objective Vital Signs Date Time Temp Pulse Resp B/P (MAP) Pulse Ox O2 Delivery O2 Flow Rate FiO2 12/12/24 10:09 97.9 96 18 155/71 (99) 100 12/12/24 07:36 Room Air 0.0 12/12/24 01:04 21 Result Diagram: 12/10/24 0602 12/10/24 0602 Gen. No acute distress alert and oriented 4, morbidly obese Lungs clear to ascultation bilaterally, no wheezes rales or rhonchi appreciated Heart normal sinus rhythm no murmurs rubs or clicks noted Abdomen soft nontender bowel sounds are normoactive Lower extremites/ feet- majority of the toes the skin is white and peeling off. 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 IV doxycycline and IV fluconazole continue Wound care 12/12 midline IV was placed today # history of drop foot Awaiting twine reeling machine operator to fit the patient for custom AFOs # morbid obesity Not likely a candidate for bariatric surgery since the patient will likely not be compliant with the post surgery instructions and recommendations # hypokalemia - resolved potassium replacement protocol # moderate protein calorie malnutrition Registered dietitian is following the patient # DVT prophylaxis Lovenox Disposition: Rehab once AFOs are obtained Date of Service: Dec 12, 2024 Billing Provider: ANIA ELIZONDO DO Common Visit Codes: [id number] INP/OBS CARE(HIGH) ANIA ELIZONDO DO Dec 12, 2024 23:50
[2024-12-13 03:40] VITALS: O2SAT 97
[2024-12-13 06:30] VITALS: BP 141/72; PULSE 90; RESP 16; TEMP 97.3; O2SAT 99
[2024-12-13 09:52] LABS: MEAN PLATELET VOLUME 9.1 FL (7.4-10.4); RED CELL DISTRIBUTION WIDTH 16.4 % (11.5-14.5)
[2024-12-13 10:19] LABS: CREATININE 0.50 MG/DL (0.60-1.10); TOTAL CARBON DIOXIDE 30.8 MMOL/L (24-32)
[2024-12-13 10:20] LABS: eCRCL 195 ML/MIN; eGFR > 90 ML/MIN
[2024-12-13 11:00] VITALS: BP 116/66; PULSE 81; RESP 18; TEMP 97; O2SAT 96
--- NOTE | 2024-12-13 17:48 | PROGRESS NOTE ---
Daily Progress Note Providers to CC ~ Antibiotic Timeout Antibiotic Ordered?: Yes Subjective The patient informs me that his midline IV does not hurt like the peripheral IV did yesterday- the patient is awaiting insurance authorization and has been accepted at [facility]. He is also awaiting his AFOs to be made the correctional probation officer measured the patient on Wednesday and anticipate that is the AFOs will arrive next Wednesday. Objective Vital Signs Date Time Temp Pulse Resp B/P (MAP) Pulse Ox O2 Delivery O2 Flow Rate FiO2 12/13/24 11:00 97.0 81 18 116/66 (83) 96 12/13/24 08:50 Room Air 0.0 21 Result Diagram: 12/13/2493812/13/24 0939 Gen. No acute distress alert and oriented 4, morbidly obese Lungs clear to ascultation bilaterally, no wheezes rales or rhonchi appreciated Heart normal sinus rhythm no murmurs rubs or clicks noted Abdomen soft nontender bowel sounds are normoactive Lower extremites/ feet-generalized erythema- with plaques of yellowish material scattered throughout bilateral distal lower extremities 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 IV doxycycline and IV fluconazole continue Wound care 12/12 midline IV was placed today # history of drop foot correctional probation officer fitted the patient for custom AFOs on Wednesday12/11/2024 anticipate arrival of AFOs on 12/18/2024 # morbid obesity Not likely a candidate for bariatric surgery since the patient will likely not be compliant with the post surgery instructions and recommendations # hypokalemia - resolved potassium replacement protocol # moderate protein calorie malnutrition Registered dietitian is following the patient # DVT prophylaxis Lovenox Disposition: [facility] has accepted the patient awaiting insurance authorization and the patient 's AFOs anticipate delivery on 12/18/2024 Date of Service: Dec 13, 2024 Billing Provider: ANIA ELIZONDO DO Common Visit Codes: [id number] INP/OBS CARE(HIGH) ANIA ELIZONDO DO Dec 13, 2024 17:48
[2024-12-13 18:00] VITALS: BP 132/70; PULSE 80; RESP 17; TEMP 97.1; O2SAT 94
[2024-12-13 22:00] VITALS: BP 119/66; PULSE 89; RESP 16; TEMP 98.1; O2SAT 96
[2024-12-14 06:35] VITALS: BP 153/90; PULSE 75; RESP 18; TEMP 97.7; O2SAT 98
[2024-12-14 11:30] VITALS: BP 124/58; PULSE 86; RESP 17; TEMP 97.4; O2SAT 97
--- NOTE | 2024-12-14 13:21 | DISCHARGE SUMMARY ---
Discharge Summary Providers to CC ~ Discharge Summary Admission Diagnosis: severe bilateral foot infection morbid obesity bilateral footdrop Hospital Course DATE OF ADMISSION: 11/28/2024 DATE OF DISCHARGE: 12/14/2024 Discharge Diagnosis\Comment: Bilateral lower extremity cellulitis morbid obesity bilateral foot drop Operations\Procedures: None Consultants: None Complications: None Condition on DC: Stable Discharge Summary: Patient is a 28-year-old History of Present Illness This is a 28-year-old morbidly obese male who presents to ED with bilateral foot wounds- the patient has not removed his shoes in 1-1/2 months however he has showered when in the ED issues were removed a numerous maggots were found the patient has feet that are severely foul-smelling and the skin is very macerated. The patient has a severe fungal infection of the feet as well as a bilateral likely bacterial infection of the feet. A CT scan was negative for o steomyelitis. IV Zosyn and IV vancomycin is ordered along with IV fluconazole. Wound care consult is ordered. Patient is alert and oriented x4 in no acute distress lying down comfortably speaking in full sentences HEENT normocephalic nontraumatic head CVS first and second heart sounds are regular rate rhythm no murmurs gallops or rubs Resp. CTA BILATERALLY ABD.-SOFT MORBIDLY OBESE BS POS NT/ND EXT. NO C/C/E HOSP. COARSE- Patient is a 28-year-old morbidly obese gentleman admitted for bilateral feet in fested with maggots and cellulitis he had not removed his shoes for a month and a half prior to admission. Very macerated bilateral lower extremity skin patient had a CT scan done which was negative for osteomyelitis patient was treated with IV antibiotics is being discharged to a shelter facility to continue antibiotics and rehab. *Problems/Diagnosis: (1) Infestation, maggots Status: Acute (2) Cellulitis of left leg Status: Acute (3) Sepsis Status: Acute (4) Bilateral foot-drop Status: Acute (5) Bilateral lower leg cellulitis Status: Acute Total Time Spent on D/C: > 30 Minutes Date of Service: Dec 14, 2024 Billing Provider: CHARLES MUNIZ MD Common Visit Codes: [id number] DISCH DAY >30min CHARLES MUNIZ MD Dec 14, 2024 13:21
== END 2024-12-14 14:10 | DRG 383 ==
LOC: ER 09:20 → ED HOLD 12:02 → EDBEDREQSVC 14:22 → EDBEDREQ 14:22 → SUR 3N 15:55
PROVIDERS: ADMIT Family Medicine; ATTEND Family Medicine
PROC: 05HF33Z Insertion of Infusion Device into Left Cephalic Vein, Percutaneous Approach (ICD-10-PCS; principal; 2024-12-12)
PROC: B54NZZA Ultrasonography of Left Upper Extremity Veins, Guidance (ICD-10-PCS; 2024-12-12)
DX: L03.115 Cellulitis of right lower limb (principal); A41.9 Sepsis, unspecified organism; Z68.43 Body mass index [BMI] 50.0-59.9, adult; B35.3 Tinea pedis; B87.89 Myiasis of other sites; J45.909 Unspecified asthma, uncomplicated; E78.00 Pure hypercholesterolemia, unspecified; E66.01 Morbid (severe) obesity due to excess calories; M21.371 Foot drop, right foot; L30.9 Dermatitis, unspecified; E87.6 Hypokalemia; M21.372 Foot drop, left foot; L03.116 Cellulitis of left lower limb; Z87.891 Personal history of nicotine dependence; Z83.3 Family history of diabetes mellitus; Z82.49 Family history of ischemic heart disease and other diseases of the circulatory system; Z59.00 Homelessness unspecified
CPT/HCPCS: 36410; 36415; 71045; 73130; 73700; 76942; 80048; 80053; 80076; 80202; 81003; 83605; 83735; 84145; 85025; 85651; 87040; 87081; 93005; 96365; 96366; 96368; 97110; 97161; 97530; 99285; A6209; A6212; A6213; A6250; A6253; A6258; A6446; A6449; C1751; G0378; J0696; J1271; J1450; J1650; J2543; J3373; J3374; J7030